=== PATIENT | male | born 1985 ===

== ENCOUNTER 2019-10-19 09:56 | Emergency (ER) | payer SELFPAY ==
[~2019-10-19] VITALS: Ht 175.3 cm; Wt 8.6 kg
[2019-10-19] MEDS ORDERED: Augmentin 875-1 EACH PO (11:38)
== END 2019-10-19 11:45 | disposition home or self-care (01) ==
LOC: ER 09:56
DX: S61.213A Laceration without foreign body of left middle finger without damage to nail, initial encounter (principal); S61.215A Laceration without foreign body of left ring finger without damage to nail, initial encounter; W29.8XXA Contact with other powered hand tools and household machinery, initial encounter; F17.200 Nicotine dependence, unspecified, uncomplicated
CPT/HCPCS: 12001; 73140; 99283-25

== ENCOUNTER 2020-05-18 13:23 | Emergency (ER) | payer OTHER ==
[~2020-05-18] VITALS: Ht 175.3 cm; Wt 90.7 kg
[~2020-05-18 13:23] MED LIST: Augmentin 875-1 EACH PO
[2020-05-18] MEDS ORDERED: Ciloxan5 ML LEFTEYE (14:36)
== END 2020-05-18 14:43 | disposition home or self-care (01) ==
LOC: ER 13:23
DX: H10.89 Other conjunctivitis (principal); B96.89 Other specified bacterial agents as the cause of diseases classified elsewhere; F17.200 Nicotine dependence, unspecified, uncomplicated
CPT/HCPCS: 99283